=== PATIENT | female | born 1990 | race Caucasian/White ===

== ENCOUNTER 2019-04-08 21:39 | Emergency (ER) | payer OTHER ==
[2019-04-08 21:59] VITALS: BP 111/72
== END 2019-04-09 00:54 | disposition left against medical advice (07) ==
LOC: ER 21:39
DX: Z53.21 Procedure and treatment not carried out due to patient leaving prior to being seen by health care provider (principal); H00.036 Abscess of eyelid left eye, unspecified eyelid